=== PATIENT | female | born 1940 | race Caucasian/White ===

== ENCOUNTER 2016-10-19 14:09 | Emergency (ER) | payer MEDICARE, OTHER ==
[2016-10-19 14:48] VITALS: RESP 16; O2SAT 98
--- NOTE | 2016-10-19 15:16 | C.PDOC ---
History Of Present Illness 76 y/o female presents to the ED with complaints of worsening dizziness x8 days. Pt reports spinning sensation, worse when moving head to the right and laying down. Symptoms improve when sitting upright with little movement. Denies headache, visual disturbance, vomiting, fever or any other complaints. Pt reports similar episode in March, had outpatient MRI negative except for mastoiditis. Pt unsure of treatment, poor historian. Pt also with history of bells palsy, told at the time had "inflammation in the head," treatment unknown. Currently in the process of dementia workup, followed by PMD and neurologist. Time Seen by Provider: 10/19/16 14:45 Chief Complaint (Nursing): Dizziness/Lightheaded History Per: Patient History/Exam Limitations: no limitations Onset/Duration Of Symptoms: Days Current Symptoms Are (Timing): Worse Associated Symptoms Preceding Syncopal Episode: Vertigo Worse With Change In Head Position Fall Associated With With Symptoms: No Severity: Moderate Recent travel outside of the [place]: No - Symptoms Of CVA Recent Head Trauma: No Past Medical History Reviewed: Historical Data, Nursing Documentation, Vital Signs Vital Signs: Last Vital Signs Temp 98.4 F 10/19/16 14:30 Pulse 89 10/19/16 14:30 Resp 16 10/19/16 14:30 BP 134/56 L 10/19/16 14:30 Pulse Ox 98 10/19/16 15:19 - Medical History PMH: Arthritis, Back Problems (Scoliosis), Fractures (knee), Gastritis, Hypothyroidism - [facility] Procedures ARTHROCENTESIS (02/08/14) MYRINGOTOMY W INTUBATION (05/25/12) Family History: States: Unknown Family Hx - Social History Hx Tobacco Use: No Hx Alcohol Use: No Hx Substance Use: No - Immunization History Hx Tetanus Toxoid Vaccination: No Hx Influenza Vaccination: No Hx Pneumococcal Vaccination: No Review Of Systems Except As Marked, All Systems Reviewed And Found Negative. Constitutional: Negative for: Fever Eyes: Negative for: Vision Change Gastrointestinal: Negative for: Vomiting Neurological: Positive for: Dizziness. Negative for: Headache Physical Exam - Physical Exam Appears: Non-toxic, No Acute Distress Skin: Warm, Dry, No Rash Head: Atraumatic, Normacephalic Eye(s): right: Other (s/p cataract surgery, pupil oblong and nonreactive), left : Normal Inspection, PERRL Ear(s): Bilateral: Normal Neck: Normal, Normal ROM, Supple Cardiovascular: Rhythm Regular, No Murmur Respiratory: Normal Breath Sounds, No Rales, No Rhonchi, No Wheezing Gastrointestinal/Abdominal: Normal Exam, Soft, No Tenderness Extremity: Normal ROM Neurological/Psych: Oriented x3, Normal Speech, Normal Cognition, Normal Motor, Normal Sensation, Other (dizziness with right lateral head tilt, no nystagmus) ED Course And Treatment - Laboratory Results Result Diagrams: 10/19/16 15:39 10/19/16 15:39 Lab Interpretation: Normal O2 Sat by Pulse Oximetry: 98 (room air) Pulse Ox Interpretation: Normal - CT Scan/US MRI Brain Other Rad Studies (CT/US): Read By Radiologist, Radiology Report Reviewed CT/US Interpretation: Accession No. : [id number]. Patient Name / ID : JEREMIAH HIGGINBOTHAM / [id number]. Exam Date : 10/19/2016 16:45:20 ( Approved ). Study Comment : Sex / Age : F / 76Y. Creator : Joshua Klely MD. Dictator : Joshua Kelly MD. Signal System Testing Maintainer : Industrial Machinery Mechanic : Joshua Kelly MD. Approver2 : Report Date : 10/19/2016 17:17:05. My Comment : . PROCEDURE: MRI BRAIN WITHOUT CONTRAST. HISTORY: vertigo. COMPARISON: None. TECHNIQUE: Multiplanar, multisequence MR images of the brain were obtained without intravenous contrast enhancement. FINDINGS: HEMORRHAGE: None. DWI: No evidence of an acute or early subacute infarction. BRAIN PARENCHYMA: No mass effect or edema. No atrophy or chronic microvascular ischemic changes. VENTRICLES: Unremarkable. No hydrocephalus. CRANIUM: Unremarkable. ORBITS: Grossly unremarkable. PARANASAL SINUSES/MASTOIDS: Bilateral mastoid air cell opacification. VASCULAR SYSTEM: Skull base flow voids intact. OTHER FINDINGS : None. IMPRESSION: Bilateral mastoid air cell opacification. Progress Note: Plan: EKG, labs, MRI brain, meclizine Reevaluation Time: 17:52 Reassessment Condition: Improved Disposition Counseled Patient/Family Regarding: Studies Performed, Diagnosis, Need For Followup, Rx Given - Disposition Referrals: Radha Baker MD [Staff Provider] - Disposition: HOME/ ROUTINE Disposition Time: 17:52 Condition: IMPROVED Instructions: Vertigo (ED) - Clinical Impression Clinical Impression: Vertigo - Scribe Statement The provider has reviewed the documentation as recorded by the Pal Ryan Provider Attestation: All medical record entries made by the Pal were at my direction and personally dictated by me. I have reviewed the chart and agree that the record accurately reflects my personal performance of the history, physical exam, medical decision making, and the department course for this patient. I have also personally directed, reviewed, and agree with the discharge instructions and disposition.
[2016-10-19 15:43] LABS: BASO % 0.5 % (0.0-2.0); EOS # 0.1 K/uL (0.0-0.7); HEMATOCRIT 38.1 % (34.0-47.0); LYMPH # 2.2 K/uL (1.0-4.3); LYMPH % 26.7 % (20.0-40.0); MEAN CELL VOLUME 92.1 fL (81.0-99.0); MEAN CORPUSCULAR HEMOGLOBIN 30.7 pg (27.0-31.0); MEAN CORPUSCULAR HGB CONC 33.4 g/dL (33.0-37.0); MEAN PLATELET VOLUME 8.4 fL (7.2-11.7); MONO # 0.4 K/uL (0.0-0.8); MONO % 4.5 % (0.0-10.0); RED CELL DISTRIBUTION WIDTH 12.8 % (11.5-14.5); WHITE BLOOD COUNT 8.4 K/uL (4.8-10.8)
[2016-10-19 16:07] LABS: CHLORIDE 101 mmol/L (98-107); SODIUM 138 mmol/L (132-148)
[2016-10-19 16:08] LABS: POTASSIUM 3.8 mmol/L (3.6-5.2)
[2016-10-19 16:10] LABS: ALB/GLOB RATIO 1.2 (1.0-2.1); ALKALINE PHOSPHATASE 81 U/L (38-126); AST/SGOT 22 U/L (14-36); BILIRUBIN,TOTAL 0.5 mg/dL (0.2-1.3); BLOOD UREA NITROGEN 14 mg/dL (7-17); CARBON DIOXIDE 29 mmol/L (22-30); GFR AFRICAN-AMERICAN > 60; GLUCOSE,RANDOM 96 mg/dL (65-105); TOTAL PROTEIN 7.1 g/dL (6.3-8.3)
[2016-10-19 16:11] LABS: ALT/SGPT 13 U/L (9-52); CALCIUM 9.4 mg/dl (8.6-10.4)
--- NOTE | 2016-10-19 17:18 | MRI ---
PROCEDURE: MRI BRAIN WITHOUT CONTRAST HISTORY: vertigo COMPARISON: None. TECHNIQUE: Multiplanar, multisequence MR images of the brain were obtained without intravenous contrast enhancement. FINDINGS: HEMORRHAGE: None DWI: No evidence of an acute or early subacute infarction. BRAIN PARENCHYMA: No mass effect or edema. No atrophy or chronic microvascular ischemic changes. VENTRICLES: Unremarkable. No hydrocephalus. CRANIUM: Unremarkable. ORBITS: Grossly unremarkable. PARANASAL SINUSES/MASTOIDS: Bilateral mastoid air cell opacification. VASCULAR SYSTEM: Skull base flow voids intact. OTHER FINDINGS: None. IMPRESSION: Bilateral mastoid air cell opacification.
[2016-10-19 18:27] VITALS: BP 122/54; PULSE 75; TEMP 97.9
== END 2016-10-19 18:28 | disposition home or self-care (01) ==
LOC: C.ER 14:09
DX: R42 Dizziness and giddiness (principal)

== ENCOUNTER 2017-01-16 14:25 | Emergency (ER) | payer MEDICARE, OTHER ==
[2017-01-16 15:16] VITALS: BP 199/59; PULSE 62; RESP 18; TEMP 97.9; O2SAT 98
== END 2017-01-16 15:10 | disposition left against medical advice (07) ==
LOC: C.ER 14:25
DX: R10.10 Upper abdominal pain, unspecified (principal); Z02.9 Encounter for administrative examinations, unspecified

== ENCOUNTER 2018-03-02 16:42 | Emergency (ER) | payer MEDICARE ==
[2018-03-02 16:42] VITALS: BMI 25.9
[2018-03-02 17:06] VITALS: RESP 18
--- NOTE | 2018-03-02 17:29 | C.PDOC ---
History Of Present Illness 77 y/o female with history of Arthritis, Scoliosis, Gastritis and High Cholesterol presents to ED with c/o right hand non-radiating numbness and tingling intermittent for 1 week. R hand numbness to only palmar aspect. No neck stiffness, no weakness, dysphagia or slurred speech. Patient also c/o mild cough for 3 days and denies headache, sweats, chills, headache, nausea, vomiting, fall, trauma or any other complaints at this time. Time Seen by Provider: 03/02/18 17:29 Chief Complaint (Nursing): Weakness/Neurological Deficit History Per: Patient History/Exam Limitations: no limitations Onset/Duration Of Symptoms: Days Current Symptoms Are (Timing): Still Present Past Medical History Reviewed: Historical Data, Nursing Documentation, Vital Signs Vital Signs: Last Vital Signs Temp 98.5 F 03/02/18 17:00 Pulse 95 H 03/02/18 17:00 Resp 18 03/02/18 17:00 BP 135/73 03/02/18 17:00 Pulse Ox 100 03/02/18 17:00 - Medical History PMH: Arthritis, Back Problems (Scoliosis), Fractures (knee), Gastritis, Hypercholesterolemia, Hypothyroidism Surgical History: No Surg Hx - [facility] Procedures ARTHROCENTESIS (02/08/14) MYRINGOTOMY W INTUBATION (05/25/12) Family History: States: No Known Family Hx - Social History Hx Tobacco Use: No Hx Alcohol Use: No Hx Substance Use: No - Immunization History Hx Tetanus Toxoid Vaccination: No Hx Influenza Vaccination: No Hx Pneumococcal Vaccination: No Review Of Systems Constitutional: Negative for: Fever, Chills, Weakness, Malaise Eyes: Negative for: Pain ENT: Negative for: Ear Pain, Nose Congestion Cardiovascular: Negative for: Chest Pain Respiratory: Positive for: Cough. Negative for: Shortness of Breath, SOB with Excertion, Pleuritic Pain Gastrointestinal: Negative for: Nausea, Vomiting, Abdominal Pain, Constipation, Melena, Hematochezia Genitourinary: Negative for: Dysuria, Frequency, Hematuria, Vaginal Discharge Musculoskeletal: Positive for: Hand Pain (numbness and tingling). Negative for: Neck Pain, Shoulder Pain, Back Pain Neurological: Negative for: Weakness, Numbness, Headache Psych: Negative for: Anxiety Physical Exam - Physical Exam Appears: Non-toxic, No Acute Distress Skin: Warm, Dry, No Rash Head: Atraumatic, Normacephalic Eye(s): bilateral: Normal Inspection, PERRL, EOMI Ear(s): Bilateral: Normal Oral Mucosa: Moist Throat: Normal, No Erythema, No Exudate Neck: Normal, Normal ROM, No Decreased ROM, Trachea Midline, Other (no meningeal signs) Cardiovascular: Rhythm Regular Respiratory: Normal Breath Sounds, No Rales, No Rhonchi, No Wheezing Gastrointestinal/Abdominal: Soft, No Tenderness, No Guarding, No Rebound Back: Normal Inspection, No CVA Tenderness Extremity: Normal ROM, No Tenderness, No Calf Tenderness, Capillary Refill (<2 seconds), No Deformity, No Swelling, Other (+Tinel sign on right hand. +Phalen sign on right hand. N/V intact to all extremities) Extremity: Bilateral: Atraumatic Pulses: Left Radial: Normal, Right Radial: Normal, Left Dorsalis Pedis: Normal, Right Dorsalis Pedis: Normal Neurological/Psych: Oriented x3, Normal Speech, Normal Cognition, Normal Cranial Nerves, No Cerebellar Signs, Normal Motor, Normal Sensation Gait: Steady ED Course And Treatment - Laboratory Results Result Diagrams: 03/02/18 18:02 03/02/18 18:02 O2 Sat by Pulse Oximetry: 100 (RA) Pulse Ox Interpretation: Normal Medical Decision Making Medical Decision Makin yr old female p/w R hand palmar numbness + tingling. +Phalen, +tinel. No noted hand wasting of thenar eminence. Good N/V status. No snuffbox tenderness. No fall or trauma. Viral URI like symptoms as well without rash- lungs cta, will seek labs and imaging. No CP or SOB Plan: CXR, Blood work 183 CXR unremarkable, labs unremarkable. No urinary or GI or complaints. removable R wrist Splint placed, good n/v status R hand splint Educated pt regarding carpal tunnel, return indications and followup. pt endorsed understanding. Disposition - Disposition Referrals: [facility] [Outside] Disposition: HOME/ ROUTINE Disposition Time: 18:36 Condition: GOOD Additional Instructions: NEFTALY DANIELS, thank you for letting us take care of you today. Your provider was Frederick Carver and you were treated for COLD/RT HAND NUMBNESS/BACK PAIN. The emergency medical care you received today was directed at your acute symptoms. If you were prescribed any medication, please fill it and take as directed. It may take several days for your symptoms to resolve. Return to the Emergency Department if your symptoms worsen, do not improve, or if you have any other problems. Please contact your doctor or call one of the physicians/clinics you have been referred to that are listed on the Patient Visit Information form that is included in your discharge packet. Bring any paperwork you were given at discharge with you along with any medications you are taking to your follow up visit. Our treatment cannot replace ongoing medical care by a primary care provider outside of the emergency department. Thank you for allowing the [facility] team to be part of your care today. If you had an X-Ray or CT scan: A Radiologist will review the ED reading if any change in treatment is needed we will contact you. If you had a blood, urine, or wound culture: It will take several days for the results, if any change in treatment is needed we will contact you. If you had an STI test: It will take 48 hours for the results. Please call after 1 week if you have not heard back. Instructions: Carpal Tunnel Syndrome, Upper Respiratory Infection (ED) Forms: [employer] ([place] Citizen) - Clinical Impression Clinical Impression: Carpal tunnel syndrome - Scribe Statement The provider has reviewed the documentation as recorded by the Pal Villagomez All medical record entries made by the Pal were at my direction and personally dictated by me. I have reviewed the chart and agree that the record accurately reflects my personal performance of the history, physical exam, medical decision making, and the department course for this patient. I have also personally directed, reviewed, and agree with the discharge instructions and disposition.
[2018-03-02 18:20] LABS: BASO # 0.1 K/uL (0.0-0.2); BASO % 0.5 % (0.0-2.0); EOS # 0.2 K/uL (0.0-0.7); EOS % 1.4 % (0.0-4.0); HEMOGLOBIN 11.9 g/dL (11.0-16.0); LYMPH # 1.9 K/uL (1.0-4.3); LYMPH % 16.6 % (20.0-40.0); MEAN CELL VOLUME 90.5 fL (81.0-99.0); MEAN CORPUSCULAR HEMOGLOBIN 30.9 pg (27.0-31.0); MEAN CORPUSCULAR HGB CONC 34.1 g/dL (33.0-37.0); MEAN PLATELET VOLUME 8.2 fL (7.2-11.7); MONO # 0.7 K/uL (0.0-0.8); MONO % 6.3 % (0.0-10.0); NEUT # 8.4 K/uL (1.8-7.0); NEUT % 75.2 % (50.0-75.0); RBC 3.84 Mil/uL (3.80-5.20); RED CELL DISTRIBUTION WIDTH 12.7 % (11.5-14.5); WHITE BLOOD COUNT 11.2 K/uL (4.8-10.8)
[2018-03-02 18:29] LABS: BLOOD UREA NITROGEN 15 mg/dL (7-17); CALCIUM 9.2 mg/dl (8.6-10.4); GFR NON-AFRICAN AMERICAN > 60
--- NOTE | 2018-03-02 18:31 | RAD ---
Date of service: 03/02/2018 HISTORY: cough COMPARISON: 03/02/2016 TECHNIQUE: Chest PA and lateral FINDINGS: LUNGS: No active pulmonary disease. PLEURA: No significant pleural effusion identified. No pneumothorax apparent. CARDIOVASCULAR: No aortic atherosclerotic calcification present. Normal cardiac size. No pulmonary vascular congestion. OSSEOUS STRUCTURES: No significant abnormalities. VISUALIZED UPPER ABDOMEN: Normal. OTHER FINDINGS: None. IMPRESSION: No active disease. No significant interval change compared to the prior examination(s).
[2018-03-02 18:34] LABS: ALB/GLOB RATIO 1.1 (1.0-2.1); ALT/SGPT < 6 U/L (9-52); AST/SGOT 45 U/L (14-36)
[2018-03-02 18:54] VITALS: BP 154/69; PULSE 79; TEMP 98.2
[2018-03-05 19:16] VITALS: O2SAT 100
== END 2018-03-02 19:10 | disposition home or self-care (01) ==
LOC: C.ER 16:42
DX: G56.01 Carpal tunnel syndrome, right upper limb (principal)